=== PATIENT | female | born 2005 | race Caucasian/White ===

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

== ENCOUNTER → 2025-06-04 13:32 | Outpatient (BNVA) | payer OTHER, SELFPAY | PROVIDERS: Visit Provider Emergency Medicine | DX: S80.01XA Contusion of right knee, initial encounter (principal); Y00.XXXA Assault by blunt object, initial encounter | CPT/HCPCS: 73564; 99204 ==

== ENCOUNTER → 2025-06-06 10:07 | Outpatient (BNVA) | payer OTHER, SELFPAY | PROVIDERS: Visit Provider Physician Assistant | DX: S80.01XA Contusion of right knee, initial encounter (principal); Y00.XXXA Assault by blunt object, initial encounter | CPT/HCPCS: 99214 ==

== ENCOUNTER → 2025-06-13 13:40 | Outpatient (BNVA) | payer OTHER, SELFPAY | PROVIDERS: Visit Provider Physician Assistant | DX: S80.01XA Contusion of right knee, initial encounter (principal); Y00.XXXA Assault by blunt object, initial encounter | CPT/HCPCS: 99213 ==

== ENCOUNTER → 2025-06-27 13:27 | Outpatient (BNVA) | payer OTHER, SELFPAY | PROVIDERS: Visit Provider Physician Assistant | DX: S80.01XA Contusion of right knee, initial encounter (principal); Y00.XXXA Assault by blunt object, initial encounter | CPT/HCPCS: 99213 ==

== ENCOUNTER → 2025-08-01 09:37 | Outpatient (BNVA) | payer OTHER, SELFPAY | PROVIDERS: Visit Provider Physician Assistant | DX: S70.372A Other superficial bite of left thigh, initial encounter (principal); S80.01XA Contusion of right knee, initial encounter; W50.3XXA Accidental bite by another person, initial encounter | CPT/HCPCS: 99203 ==

== ENCOUNTER → 2025-08-18 12:19 | Outpatient (BNVA) | payer OTHER, SELFPAY | PROVIDERS: Visit Provider Physician Assistant Medical | DX: S80.01XD Contusion of right knee, subsequent encounter (principal); Y04.2XXD Assault by strike against or bumped into by another person, subsequent encounter; S40.872D Other superficial bite of left upper arm, subsequent encounter; Y04.1XXD Assault by human bite, subsequent encounter | CPT/HCPCS: 73562; 73700; 99203 ==